=== PATIENT | female | born 1980 | race Caucasian/White ===

== ENCOUNTER → 2016-09-04 | Outpatient (CLI) | payer BC ==
--- NOTE | 2016-09-04 17:16 | CT ---
EXAMINATION TYPE: CT sinus wo con DATE OF EXAM: 09/04/2016 5:10 PM COMPARISON: NONE HISTORY: Pt states of vertigo and sinus congestion. CT DLP: 603.0 mGycm Automated exposure control for dose reduction was used. FINDINGS: There is bilateral patency of the ostiomeatal complex. Nasal septum deviates to the right side. There is fairly normal development and aeration of the paranasal sinuses. I see no bony destructive proces s. Maxilla is intact. Orbital margins are intact. There is no sign of orbital mass. There is normal a eration of the mastoid sinuses. . IMPRESSION: MILD NASAL SEPTUM DEVIATION. OTHERWISE NEGATIVE CT SCAN OF THE PARANASAL SINUSES.
== END | disposition home or self-care (01) ==
LOC: RADCTMAIN 16:46
PROVIDERS: ATTEND Otolaryngology
DX: J34.2 Deviated nasal septum (principal)
CPT/HCPCS: 70486

== ENCOUNTER → 2016-11-28 | Day surgery (SDC) | payer BC ==
[2016-11-26 10:16] VITALS: BMI 29.2
[~2016-11-28] MED LIST: ACETAMINOPHEN TAB 500 MG TAB PO ONE; BACITRACIN 500 UNIT/GM OINT 28.4 GM TUBE TOPICAL ONE; BUPIVACAIN-EPI 0.5%-1:200,000 30 ML VIAL SQ ONE; DEXAMETHASONE SOD PHOS (MDV) 100 MG/10 ML VIAL ONE; DEXAMETHASONE SOD PHOSPHATE 10 MG/ML 1 ML VIAL IV ONE; DEXAMETHASONE SOD PHOSPHATE 4 MG/ML 1 ML VIAL IV ONE; EPINEPHrine 1 MG/ML (MDV) 30 ML VIAL TOPICAL ONE; FAMOTIDINE 20 MG/2 ML VIAL IV ONE; FLUORESCEIN STRIPS 1 MG STRIP MISCELLANE ONE; HYDROmorphone 1 MG/ML 1 ML SYRINGE IVP PRN; IV FLUID CONTINUATION 1,000 ML IV ONE; LACTATED RINGERS 1,000 ML IV ONE; LACTATED RINGERS 1,000 ML IV SCH; LIDOCAINE 1% 20 ML VIAL (10MG/ML) FOR IV START SQ ONE; LIDOCAINE 1% INJ 10MG/ML (20 ML MDV) ONE; LIDOCAINE 1%-EPI 1:100,000 20 ML VIAL SUBMUCOSAL ONE; METOCLOPRAMIDE 5 MG/ML 2 ML VIAL IVP ONE; MIDAZOLAM 2 MG/2 ML VIAL ONE; ONDANSETRON 4 MG/2 ML VIAL IVP ONE; ONDANSETRON 4 MG/2 ML VIAL ONE; OXYMETAZOLINE 0.05% NASL SPRAY 15 ML ONE; PROPOFOL 10 MG/ML 20 ML VIAL IV ONE; Pre Op ABX Message 1 EACH MISC MISCELLANE ONE; SUCCINYLCHOLINE CHLORIDE 100 MG/5 ML SYR IV ONE; fentaNYL (PF) 50 MCG/ML 2 ML AMP ONE
[2016-11-28] MEDS: OXYMETAZOLINE 0.05% NASL SPRAY 15 ML NASAL ONE ×5 (10:03→10:23)
[2016-11-28 14:54] VITALS: TEMP 97.3
[2016-11-28 15:03] VITALS: RESP 18
--- NOTE | 2016-11-28 15:29 | P.OP ---
Date of Procedure: 11/28/16 Preoperative Diagnosis: Deviated nasal septum Bilateral hypertrophy of inferior nasal turbinates Chronic and recurring acute sinusitis External nasal deformity with severe deflection, acquired Postoperative Diagnosis: Same Procedure(s) Performed: Septoplasty Bilateral outfracture compression and submucosal resection of the inferior turbinates Bilateral functional endoscopic sinus surgery with total ethmoidectomy, bilateral maxillary antrostomy, and bilateral sphenoid sinusotomy with removal of diseased tissue Open rhinoplasty with stabilization Implants: Anesthesia: CISCOA Surgeon: Howard Stafford Estimated Blood Loss (ml): 25 Pathology: other (Sinonasal) Condition: stable Disposition: PACU Indications for Procedure: This patient has had many years of constant sinus problems. She has total nasal obstruction anosmia recurring infections and constant drainage is discolored. She been on multiple antibiotics with no improvement. She been on multiple nasal sprays with no improvement. Her issues are persistent and she is quite frustrated that she has not got any improvement in spite of medical therapy. We discussed treatment options risks benefits and alternative therapies and the patient wishes to proceed forward with surgical correction of this patient's obvious external and internal nasal derangement and chronic sinusitis issues. Operative Findings: Description of Procedure: This patient was taken to the operative room and placed in the supine position. A general inhalation anesthetic was administered to the patient by the department of anesthesia with a functioning IV line in place. The patient was monitored throughout the entire case by the department of anesthesia. The eyes were taped shut for protection. The patient was placed in a slight reverse Trendelenburg position. The patient had previously utilize Afrin nasal spray preoperatively. The nose was evaluated and the septum lateral nasal wall and inferior turbinates were injected with lidocaine 1% with epinephrine 1 100,000 bilaterally. Approximately 10 minutes were allowed wait for full vasoconstrictive effects to take place. This patient was found to have a severe right septal deviation with a 100% nasal occlusion. Patient had large obstructive inferior turbinates. Intranasal crusting purulence and scabbing was noted. At this point a caudal incision was made over the caudal portion of the left septum down to the mucoperichondrium. A mucoperichondrial flap was elevated on the left side and dissection was carried with use of tunnels posteriorly. We then made a crossover incision through the cartilage to the contralateral side and for the mucoperichondrial flap development was performed to the extent of visualization on the contralateral side. After the cartilage was freed with use of several crosshatching incisions and removal of some redundant strips of septal cartilage , the septum was straightened and placed back in the midline. The septum was sutured fixated to the ovarian groove. Excellent straightening occurred and the septum was visibly straight. Incision was closed with a 40 rapid Vicryl. We utilized a running nonlocking fashion for closure of the incision. A quilting stitch was used to reapproximate the septal flaps with use of a 40 rapid Vicryl. We then entered the nose with a 0 and 30 Delgadillo guanakito endoscope. Previous to this we did inject the lateral nasal wall and middle turbinate and uncinate process with lidocaine 1% with epinephrine 1 100,000. Approximately 10 minutes were allowed wait for full vasoconstrictive effects to take place. With use of a microdebrider and a pediatric backbiter, we took down the uncinate process bilaterally. We then opened the maxillary sinuses bilaterally. We utilized a microdebrider for this and entered the maxillary sinuses and removed diseased tissue. This was done bilaterally. After the maxillary sinuses were opened and the diseased tissue was removed we entered the ethmoid bulla and with use of a microdebrider and up-biting boss and Larryley, we followed the fovea frontalis through the basal lamella and into the posterior ethmoid air cells and did a total ethmoidectomy. We removed the anterior ethmoid air cells with use of a microdebrider and up-biting boss. After all the anterior ethmoid air cells were removed we did the same in the posterior ethmoid. A total ethmoidectomy was completed in that fashion with removal of all the anterior and posterior ethmoid air cells and diseased tissue. Once the ethmoids cells were all taken down we then entered the sphenoid sinus medially and inferiorly underneath the inferior attachment of the superior turbinate. The sphenoid sinus was opened entered and diseased tissue was removed bilaterally. This was done with a microdebrider and Blakesley. To summarize the sphenoid, total ethmoids and bilateral maxillary sinuses were open these sinuses were explored and we remove diseased tissue from the sphenoid maxillary and frontal sinuses. Ethmoid sinuses were opened totally. Xerogel was inserted and minimal bleeding was encountered. We reinspected the skull base there is no signs of any orbital penetration or signs of any intracranial penetration. The sugical site was reinspected after the xerogel was placed and no bleeding was seen. Intranasal splints were inserted and fixated at the end of the case. We utilized Hendrix nasal splints. There will be removed when the patient returns to the office. Attention was then paid to the inferior turbinates. The bilateral inferior turbinates were hypertrophic and obstructive. We entered the anterior portion of the inferior turbinates with use of a microdebrider. We remove bone and submucosal elements with use of a microdebrider bilaterally. The inferior turbinates underwent a submucosal resection with removal of submucosal tissue and bone. We obtained a much better and normal in size for breathing. The inferior turbinates were then outfractured and compressed with a eJamming nasal elevator. Excellent airway was obtained and was symmetric bilaterally. No bleeding was encountered. Attention was then paid to the nose which was previously sterilely prepped and draped in usual fashion. We injected lidocaine 1% with epinephrine 1 100,000 external ear on the nose and a ring block type injection with injection of the columella. A columellar step off incision was made and extended is a marginal incision. We then elevated the skin of the nasal tip and continued our dissection along the nasal dorsum and identified the nasal bone and continued the dissection to the nasal root. We did not dissect laterally down to the lateral portion of the nose reveals to the periosteum intact. The nasal tip was found to be deformed. With use of a 50 clear nylon in a mattress suture was performed to enhance the nasal tip. We brought the lower lateral cartilages together and excellent cosmetic result was obtained. Patient is a large bony hump which was taken down with a rasp. We utilized a moles rest is smooth without this contour. We then performed a medial and lateral osteotomies with use of a Jessica osteotomes. We did make a cauterization incision above the inferior turbinates before the osteotomies were performed in the osteotomes were entered. After we outfractured the nasal bones replace them back in position in the midline. The nose was straightened. An excellent cosmetic result was obtained. The dorsum had an excellent contour the nasal tip was congruent with the nasal dorsum and the nose was straightened into a midline relationship. The nose was then cleaned we closed the incisions intranasally with 50 rapid Vicryl. We closed the columellar incision with a 5- 0 Prolene. The nose was then taped and casted in usual fashion and the patient tolerated this well. Follow-up will be in the office and splints will be removed on Friday. We'll be removing the cast on Friday. Patient is not to hit her nose slight on her nose or in any way displace her nose. She is to call me if any from should arise.
[2016-11-28 15:57] VITALS: BP 113/75; PULSE 89
== END | disposition home or self-care (01) ==
LOC: OR 09:31
PROVIDERS: ATTEND Otolaryngology
DX: J34.2 Deviated nasal septum (principal); J34.3 Hypertrophy of nasal turbinates; J01.91 Acute recurrent sinusitis, unspecified; M95.0 Acquired deformity of nose; R43.0 Anosmia; J34.89 Other specified disorders of nose and nasal sinuses; Z88.8 Allergy status to other drugs, medicaments and biological substances
CPT/HCPCS: 81025; 88305; 88300; 30520; 30140; 31255; 31267; 30400; J0171; J2250; J1100 ×2; J2765; J2405; J2001; J3010; J0330; J2704